=== PATIENT | male | born 1970 | race Caucasian/White ===

== ENCOUNTER 2019-11-13 18:36 | Emergency (ER) | payer OTHER ==
--- NOTE | 2019-11-13 19:50 | EDM.PDOC ---
ED HPI GENERAL MEDICAL PROBLEM - General Chief Complaint: Cardiovascular Problem Stated Complaint: high blood pressure Time Seen by Provider: 11/13/19 19:25 Source of Information: Reports: Patient, RN History Limitations: Reports: No Limitations - History of Present Illness INITIAL COMMENTS - FREE TEXT/NARRATIVE: 49 yo male comes to the ED for a blood pressure check. He became worried when his home blood pressure machine would not give him a reading. He is here from [place] to see his mother that is dying of lung cancer. She has been told that she has a few weeks to few months left to live. Lea has been under alot of stress due to his mother and he also lost his job in September. He does have a new job that he could start in [place] but feels like he can't leave his mother yet. His is a principal and doesn't get a paycheck in November or December so that is adding to his stress. He denies headache, chest pain, SOB, vision changes, or any other symptoms. He states that he had an exercise stress test and 24 urine test 4 years ago that were both normal. He was previously on Bystolic and he thinks Losartan but they were discontinued cause his blood pressures "were good ". Lea admits a history of anxiety. Onset: Gradual Duration: Week(s): (last few weeks) Associated Symptoms: Reports: No Other Symptoms Treatments AQUATICS SPECIALIST: Reports: Other Medication(s) Other Treatments AQUATICS SPECIALIST: took his keiry metoprolol tartrate - Related Data Allergies Allergy/AdvReac Type Severity Reaction Status Date / Time No Known Allergies Allergy Verified 11/13/19 19:11 Home Meds: Home Meds Cetirizine [ZyrTEC] 1 tab PO DAILY 11/13/19 [History] Fluticasone Propionate [Flovent] 1 spray NASBOTH ASDIRECTED 11/13/19 [History] Metoprolol Tartrate 1 tab PO BID 11/13/19 [History] Past Medical History Cardiovascular History: Reports: Hypertension Psychiatric History: Reports: Addiction, Anxiety Social & Family History - Tobacco Use Years of Tobacco use: 25 Packs/Tins Daily: 1 - Caffeine Use Caffeine Use: Reports: None - Alcohol Use Days Per Week of Alcohol Use: 7 Number of Drinks Per Day: 10 Total Drinks Per Week: 70 - Recreational Drug Use Recreational Drug Use: No ED ROS GENERAL - Review of Systems Review Of Systems: Comprehensive ROS is negative, except as noted in HPI. ED EXAM, GENERAL - Physical Exam Exam: See Below Exam Limited By: No Limitations General Appearance: Alert, WD/WN, No Apparent Distress Eye Exam: Bilateral Eye: PERRL, Vision Changes (denies any vision changes or symptoms) Head: Atraumatic, Normocephalic Neck: Normal Inspection, Supple, Non-Tender, Full Range of Motion Respiratory/Chest: No Respiratory Distress, Lungs Clear, Normal Breath Sounds, No Accessory Muscle Use Cardiovascular: Regular Rate, Rhythm, No Edema, No Gallop, No JVD, No Murmur Peripheral Pulses: 2+: Radial (L), Radial (R) GI/Abdominal: Normal Bowel Sounds, Soft, Non-Tender, No Organomegaly (Male) Exam: Deferred Rectal (Males) Exam: Deferred Extremities: Other (left shoulder is tender to the trapezius area- thinks he strained it helping lift his mother) Psychiatric: Normal Affect, Normal Mood Skin Exam: Warm, Dry Lymphatic: No Adenopathy Course - Vital Signs Last Recorded V/S: Last Vital Signs Temp 95.9 F L 11/13/19 19:09 Pulse 60 11/13/19 20:56 Resp 14 11/13/19 20:20 BP 194/94 H 11/13/19 20:56 Pulse Ox 98 11/13/19 20:56 - Orders/Labs/Meds Labs: Laboratory Tests 11/13/19 Range/Units 19:43 Sodium 135 L (140-148) mmol/L Potassium 3.8 (3.6-5.2) mmol/L Chloride 99 L (100-108) mmol/L Carbon Dioxide 28 (21-32) mmol/L Anion Gap 11.8 (5.0-14.0) mmol/L BUN 9 (7-18) mg/dL Creatinine 0.9 (0.8-1.3) mg/dL Est Cr Clr Drug Dosing 85.42 mL/min Estimated GFR (MDRD) > 60 (>60) Glucose 96 (74-106) mg/dL Calcium 9.0 (8.5-10.1) mg/dL Meds: Medications Discontinued Medications Generic Name Dose Route Start Last Admin Trade Name Freq PRN Reason Stop Dose Admin Amlodipine Besylate 5 mg 11/13/19 19:44 11/13/19 19:56 Norvasc PO 11/13/19 19:45 5 mg ONETIME ONE Administration Departure - Departure Time of Disposition: 21:30 Disposition: Home, Self-Care 01 Condition: Fair Clinical Impression: Hypertension Instructions: Preventing Hypertension Referrals: PCP,None [Primary Care Provider] - Forms: ED Department Discharge Additional Instructions: Recommend watching your daily sodium intake. Aim for a maximum of 2,300 mg/ day. Try to cut back on your tobacco use and alcohol. These both contribute to your high blood pressure. Start amlodipine 5 mg daily. you will have 20 days worth. Keep you follow-up appointment with your provider in [place] and inform him on starting this new medication. If your blood pressure is not improved within 7 days, get an appointment at the clinic to re evaluate. Call or return to ED with any headaches, vision changes, chest pains, or any other concerns. Sepsis Event Note - Evaluation Sepsis Screening Result: No Definite Risk - Focused Exam Vital Signs: Vital Signs Temp Pulse Resp BP BP Pulse Ox 11/13/19 20:56 60 194/94 H 98 11/13/19 20:20 64 14 193/94 H 99 11/13/19 19:56 192/97 H 11/13/19 19:45 62 192/97 H 98 11/13/19 19:09 95.9 F L 74 14 215/114 H 99 Date Exam was Performed: 11/13/19 Time Exam was Performed: 21:34 - Assessment/Plan Plan: plan to discharge home. add amlodipine 5 mg to home medications.
[2019-11-13] MEDS: amLODIPine 5 MG Tab PO ONE (19:56)
== END 2019-11-13 21:58 | disposition home or self-care (01) ==
LOC: JP.ED 18:36
DX: I10 Essential (primary) hypertension (principal); F17.210 Nicotine dependence, cigarettes, uncomplicated; Z79.899 Other long term (current) drug therapy
CPT/HCPCS: 36415; 80048; 99283; A9270